=== PATIENT | male | born 1965 | race Caucasian/White ===

== ENCOUNTER 2017-04-24 08:26 | Day surgery (SDC) | payer OTHER ==
[2017-04-12 16:15] VITALS: BMI 24.4
[~2017-04-24 08:26] MED LIST: DEXAMETHASONE SOD PHOSPHATE 10 MG/ML 1 ML VIAL IV ONE; HEPARIN SODIUM,PORCINE 5,000 UNIT/ML 1 ML VIAL SQ ONE; LACTATED RINGERS 1,000 ML IV SCH; ONDANSETRON 4 MG/2 ML VIAL IVP ONE; SCOPOLAMINE 1.5MG/72HR PATCH TRANSDERM ONE; ceFAZolin IN SWFI 2 GM/20 ML SYRINGE IVP ONE; fentaNYL (PF) 50 MCG/ML 2 ML AMP IV PRN
--- NOTE | 2017-04-24 09:21 | P.GSHP ---
History of Present Illness H&P Date: 04/24/17 Chief Complaint: Left inguinal hernia This is a 1-year-old male referred from Dr. Lozoya. Patient is today for laparoscopic robotic system repair of left inguinal hernia. Past Medical History Past Medical History: Hypertension History of Any Multi-Drug Resistant Organisms: None Reported Past Surgical History: Orthopedic Surgery Additional Past Surgical History / Comment(s): "TWISTED TESTICLE REPAIRED" Past Anesthesia/Blood Transfusion Reactions: Previous Problems w/ Anesthesia Additional Past Anesthesia/Blood Transfusion Reaction / Comment(s): "WAS SHAKING SO BAD I FELT LIKE I WAS HAVING DT'S" Smoking Status: Current every day smoker - Past Family History Mother Family Medical History: Cancer, Deep Vein Thrombosis (DVT) Sister(s) Family Medical History: Cancer, Deep Vein Thrombosis (DVT) Brother(s) Family Medical History: Cancer Medications and Allergies Home Medications Medication Instructions Recorded Confirmed Type Bisoprolol-Hctz 5-6.25 mg [Ziac 1 each PO DAILY 01/23/15 04/12/17 History 5-6.25] Allergies Allergy/AdvReac Type Severity Reaction Status Date / Time latex Allergy Rash/Hives Verified 04/12/17 16:15 codeine AdvReac Nausea & Verified 04/12/17 16:07 Vomiting Surgical - Exam - General well developed, no distress - Eyes PERRL - ENT normal pinna - Neck no masses - Respiratory normal expansion - Cardiovascular Rhythm: regular - Abdomen Abdomen: soft, non tender Hernia: inguinal (Reducible left inguinal hernia) Assessment and Plan Assessment: The femoral hernia. We'll perform robotic-assisted repair
[2017-04-24] MEDS ORDERED: LACTATED RINGERS 1,000 ML IV ONE ×2 (09:45→11:52)
[2017-04-24] MEDS: LIDOCAINE 1% 20 ML VIAL (10MG/ML) FOR IV START INTRADERMA PRN ×2 (09:45→10:01)
[2017-04-24] MEDS ORDERED: ePHEDrine SULFATE/0.9% NACL/PF 50 MG/5 ML SYRINGE IV ONE (10:06)
[2017-04-24] MEDS ORDERED: ROCURONIUM BROMIDE 10 MG/ML 10 ML VIAL IV ONE (10:06)
[2017-04-24] MEDS ORDERED: fentaNYL (PF) 50 MCG/ML 2 ML AMP ONE (10:06)
[2017-04-24] MEDS ORDERED: SUCCINYLCHOLINE CHLORIDE 100 MG/5 ML SYR IV ONE (10:06)
[2017-04-24] MEDS ORDERED: MIDAZOLAM 2 MG/2 ML VIAL ONE (10:06)
[2017-04-24] MEDS ORDERED: NEOSTIGMINE 1 MG/ML 10 ML VIAL ONE (10:06)
[2017-04-24] MEDS ORDERED: PROPOFOL 10 MG/ML 20 ML VIAL IV ONE (10:06)
[2017-04-24] MEDS ORDERED: LIDOCAINE 1% INJ 10MG/ML (20 ML MDV) ONE (10:06)
[2017-04-24] MEDS ORDERED: GLYCOPYRROLATE 0.2 MG/ML 2 ML VIAL ONE (10:06)
[2017-04-24] MEDS ORDERED: BUPIVACAINE (PF) 0.25% 30 ML VIAL SQ ONE (10:26)
--- NOTE | 2017-04-24 10:59 | P.OP ---
Date of Procedure: 04/24/17 Preoperative Diagnosis: Left inguinal hernia Postoperative Diagnosis: Left inguinal hernia Procedure(s) Performed: Scopic robotic-assisted repair of left inguinal hernia Laparoscopic excision of cord lipoma Anesthesia: GERALDINE Surgeon: Jaden Kwok Estimated Blood Loss (ml): 5 Pathology: other (Cord lipoma) Condition: stable Disposition: PACU Description of Procedure: The patient's placed on the operating table in the supine position. The patient received general anesthesia. The patient's abdomen was prepped and draped in usual sterile fashion. The skin was anesthetized 1% local Xylocaine at the incision sites. Using an 11 blade a skin incision was made at the umbilicus. The fascia was grasped with a Jeanne and then the peritoneal cavity was entered with the Veress needle. Position of the Veress needle was confirmed with a positive drop test. After adequate insufflation a 5 mm trocar was placed into the peritoneal cavity. The Laparoscope was placed the peritoneal cavity. And a robotic 8 mm trocar was placed in the right lateral position and then another 8 mm robotic trochars placed in the left lateral position. The original 5 mm trocar was exchanged for a 12 mm trocar. The patient was placed in reverse Trendelenburg and then the patient was docked to the robot. Next the peritoneum over top of the hernia was incised and then using blunt and sharp dissection and electrocautery the hernia sac was dissected free from the floor of the inguinal canal. The patient had a cord lipoma. This was dissected free from the cord. The hernia sac was completely reduced into the peritoneal cavity. And then using the Pro die welder mesh the hernia was repaired. The peritoneum was then sutured with 20V lock suture. The patient was then undocked the robot. The needle was withdrawn from the peritoneal cavity. Cord lipoma was withdrawn and sent to pathology. The umbilical trocar site was closed with 0 Ethibond suture. The skin was closed interrupted 3-0 Monocryl suture. Dermabond dressing was applied. Patient was sent to recovery in stable condition.
[2017-04-24 11:09] VITALS: TEMP 97.8
[2017-04-24] MEDS: HYDROmorphone 2 MG/ML 1 ML SYRINGE IVP ONE ×3 (11:16→11:34)
[2017-04-24 11:19] VITALS: RESP 16
[2017-04-24] MEDS ORDERED: KETOROLAC 30 MG/ML 1 ML VIAL IVP ONE (11:50)
[2017-04-24] MEDS ORDERED: HYDROmorphone 2 MG/ML 1 ML SYRINGE IVP ONE (11:57)
[2017-04-24 12:31] VITALS: PULSE 45
[2017-04-24] MEDS ORDERED: HYDROcodone/APAP 7.5-325MG 1 EACH TAB PO ONE (12:31)
[2017-04-24 12:48] VITALS: BP 138/85
== END 2017-04-24 13:04 | disposition home or self-care (01) ==
LOC: OR 08:26
PROVIDERS: ATTEND Surgery
DX: K40.90 Unilateral inguinal hernia, without obstruction or gangrene, not specified as recurrent (principal); D17.6 Benign lipomatous neoplasm of spermatic cord; I10 Essential (primary) hypertension; F17.210 Nicotine dependence, cigarettes, uncomplicated; Z79.899 Other long term (current) drug therapy; Z88.5 Allergy status to narcotic agent; Z91.040 Latex allergy status
CPT/HCPCS: 49650; S2900; 88304

== ENCOUNTER → 2019-11-10 | Outpatient (CLI) | payer BC ==
--- NOTE | 2019-11-11 00:06 | MR ---
EXAMINATION TYPE: MR foot RT wo con DATE OF EXAM: 11/10/2019 COMPARISON: None HISTORY: Pain and swelling Multiplanar multiecho imaging of the right foot was performed without contrast. FINDINGS: The metatarsals are intact. Joint spaces are fairly normal in the foot. The Achilles tendon is intact . Plantar fascia appears intact. The medial and lateral flexor tendons of the foot appear intact. Sub talar joint appears normal. I see no bony destructive process. The collateral ligaments of the ankle appear intact. There is very minimal subcutaneous edema of the forefoot around the MP joints. I see no bony destruct sherita process. There is no evidence of soft tissue mass. There is a small effusion of the first MP join t. IMPRESSION: Mild soft tissue swelling of the forefoot at the MP joints. Small joint effusion of the first MP join t. No fracture. Normal joint spaces. No evidence of ligament or tendon tear.
== END | disposition home or self-care (01) ==
LOC: RADMRIMAIN 15:16
PROVIDERS: ATTEND Orthopaedic Surgery
DX: M25.474 Effusion, right foot (principal); M79.89 Other specified soft tissue disorders

== ENCOUNTER → 2021-05-11 | Outpatient (CLI) | payer OTHER ==
--- NOTE | 2021-05-12 13:09 | ECHOS ---
STRESS ECHOCARDIOGRAM INDICATIONS: Chest pain. BASELINE HEART RATE: 45 BASELINE BLOOD PRESSURE: 139/74 MAXIMUM HEART RATE: 121 MAXIMUM BLOOD PRESSURE: 229/58 85% MPHR: 139 100% MPHR: 163 METS: 9.3 MAXIMUM STAGE REACHED: III TOTAL EXERCISE TIME: 9:35 CLINICAL INFORMATION: STRESS DATA: Heart rate 45, pressure 139/74 mmHg. Baseline EKG showed sinus mechanism. The patient exercised on the treadmill according to Dimitri protocol for a total of 9 minutes and achieved 9.3 METS. Max heart rate was 121, which is about 74% of maximum predicted heart rate, and maximum blood pressure was 229/58 mmHg. Clinically the patient developed chest discomfort. The EKG did not show any significant ST or T-wave abnormalities concerning for ischemia. Echocardiogram images from parasternal long axis view, parasternal short axis view, apical 4-chamber and apical 2-chamber views were obtained as the baseline images at the peak of the heart rate as well as on recovery, and the echocardiogram images did not show any evidence of significant wall motion abnormalities concerning for ischemia. CONCLUSION: 1. Chest discomfort in response to exercise. 2. Normal EKG in response to exercise to the level of the heart rate achieved, which is only 74%. 3. Normal echocardiogram in response to exercise to the level of the heart rate which was achieved. 4. Overall this is a nondiagnostic stress test because the patient only achieved 74% of maximum predicted heart rate. MMJACQUIEL / KOKON: [id number] /
== END | disposition home or self-care (01) ==
LOC: RADNMMAIN 09:17
PROVIDERS: ATTEND Family Medicine
DX: R07.89 Other chest pain (principal)
CPT/HCPCS: 93351

== ENCOUNTER 2021-07-11 06:05 | Day surgery (SDC) | payer OTHER ==
[2021-07-07 15:51] VITALS: BMI 22.8
[~2021-07-11 06:05] MED LIST changes: +ALPRAZolam 0.25 MG TAB PO PRN; +ALPRAZolam 0.5 MG TAB PO PRN; +ASPIRIN 325 MG TAB PO STA; +ATORVASTATIN 80 MG TAB PO STA; -DEXAMETHASONE SOD PHOSPHATE 10 MG/ML 1 ML VIAL IV ONE; +HEPARIN SODIUM,PORCINE 10,000 UNIT in SODIUM CHLORIDE 0.9% 1,000 ML IRRIGATION PRN; +HEPARIN SODIUM,PORCINE 2,500 UNIT in SODIUM CHLORIDE 0.9% 250 ML IRRIGATION PRN; -HEPARIN SODIUM,PORCINE 5,000 UNIT/ML 1 ML VIAL SQ ONE; -LACTATED RINGERS 1,000 ML IV SCH; +NITROGLYCERIN SL TABS 0.4 MG TAB SUBLINGUAL PRN; -ONDANSETRON 4 MG/2 ML VIAL IVP ONE; -SCOPOLAMINE 1.5MG/72HR PATCH TRANSDERM ONE; +SODIUM CHLORIDE 0.9% 1,000 ML in EMPTY BAG 1 BAG IV SCH; -ceFAZolin IN SWFI 2 GM/20 ML SYRINGE IVP ONE; -fentaNYL (PF) 50 MCG/ML 2 ML AMP IV PRN
[2021-07-11 06:51] VITALS: RESP 18; TEMP 98.1
[2021-07-11] MEDS ORDERED: LIDOCAINE 1% INJ 10MG/ML (20 ML MDV) ONE (07:18)
[2021-07-11] MEDS ORDERED: VERAPAMIL 2.5 MG/ML 2 ML AMP ONE (07:18)
[2021-07-11] MEDS ORDERED: fentaNYL (PF) 50 MCG/ML 2 ML AMP ONE (07:27)
[2021-07-11] MEDS ORDERED: fentaNYL (PF) 50 MCG/ML 2 ML AMP IV ONE (07:36)
[2021-07-11] MEDS ORDERED: HEPARIN SODIUM 1,000 UN/ML (10ML VL) ONE (07:37)
[2021-07-11] MEDS ORDERED: MIDAZOLAM 2 MG/2 ML VIAL IV ONE (07:38)
[2021-07-11] MEDS: LIDOCAINE 1% INJ 10MG/ML (20 ML MDV) SQ ONE ×2 (07:39→07:55)
[2021-07-11] MEDS ORDERED: IOPAMIDOL-370 125ML BTL INJ ONE (08:05)
--- NOTE | 2021-07-11 08:31 | CC ---
CARDIAC CATHETERIZATION REPORT INDICATION: Recurrent episodes of chest pain with an abnormal stress test. PROCEDURE NOTE: After obtaining informed consent, left heart catheterization and coronary angiogram were performed via the right femoral artery using standard Hermes catheters. Patient tolerated the procedure well without any obvious immediate complications. A femoral angiogram was performed and Angio-Seal was deployed for hemostasis. Patient received moderate conscious sedation. Total sedation time was 26 minutes. I initially attempted vascular access to the right radial artery, but I was unsuccessful; hence I proceeded with a femoral cath. FINDINGS: HEMODYNAMICS: Left ventricular end-diastolic pressure is 8 to 10 mm. There is no significant gradient across the aortic valve. LEFT VENTRICULOGRAM: Left ventriculogram was not performed. ANGIOGRAPHIC DATA Left main coronary artery. Left main coronary artery is a normal-sized vessel and is free of stenosis. It divides into left anterior descending coronary artery and circumflex coronary artery and a ramus intermedius. LAD, circumference and the ramus are free of significant disease. Right coronary artery is a large codominant system and is free of significant disease. CONCLUSIONS: 1. Normal coronary arteries. 2. Normal left ventricular end-diastolic pressure. 3. False-positive stress test. 4. Patient's chest pain is noncardiac in origin. PLAN: Will work on risk factor modifications. MMODL / IJN: [id number] /
[2021-07-11] MEDS ORDERED: RX INFO: IV CONTRAST WAS GIVEN 1 EACH MISC MISCELLANE PRN (09:33)
[2021-07-11] MEDS ORDERED: ACETAMINOPHEN TAB 325 MG TAB PO PRN (09:35)
[2021-07-11] MEDS ORDERED: ACETAMINOPHEN TAB 325 MG TAB ONE (09:35)
[2021-07-11] MEDS ORDERED: SODIUM CHLORIDE 0.9% 1,000 ML IV SCH (09:45)
[2021-07-11 13:08] VITALS: PULSE 40
[2021-07-11 13:09] VITALS: BP 147/80
== END 2021-07-11 13:06 | disposition home or self-care (01) ==
LOC: CATHCVL 06:05
PROVIDERS: ATTEND Internal Medicine Cardiovascular Disease
DX: R07.2 Precordial pain (principal); I10 Essential (primary) hypertension; F17.210 Nicotine dependence, cigarettes, uncomplicated; Z79.82 Long term (current) use of aspirin; Z79.899 Other long term (current) drug therapy
CPT/HCPCS: 93458; C1760; C1894 ×2; C1769; J2250; J2001; J3010; Q9967

== ENCOUNTER → 2023-02-08 | Outpatient (CLI) | payer OTHER ==
--- NOTE | 2023-02-08 20:16 | CTL ---
EXAMINATION TYPE: CT Low Dose Lung DATE OF EXAM ORDERED: 02/08/2023 HISTORY: Nicotine Dependance. Lung cancer screening CT DLP: 76.[address] CTDI: 1.9 mGy Automated exposure control for dose reduction was used. SCREENING VISIT: Initial COMPARISON: None TECHNIQUE: Low dose computed tomography scan was performed through the chest at 1 mm thick sections a nd reconstructed images in the coronal plane at [address] DIAGNOSTIC QUALITY: Satisfactory FINDINGS: LUNG NODULES: None. LUNGS: COPD: Severity: None Fibrosis: Severity: None Lymph nodes: None Other findings: None RIGHT PLEURAL SPACE: Effusion: None Calcification: None Thickening: None Pneumothorax: None LEFT PLEURAL SPACE: Effusion: None Calcification: None Thickening: None Pneumothorax: None HEART: Heart Size: Normal Coronary calcification: None Pericardial effusion: None OTHER FINDINGS: Upper abdomen: Normal Bony thorax: Normal Supraclavicular region: Normal Other: Ascending thoracic aorta at the level the main pulmonary artery measures 3.9 cm. The main pul monary artery at the bifurcation measures2.8 cm. IMPRESSION: No FOLLOW UP CT CHEST RECOMMENDATION: Follow-up low-dose CT chest one year CT LUNG RAD: Lung-Rad 1 Negative
== END | disposition home or self-care (01) ==
LOC: RADCTMAIN 09:05
PROVIDERS: ATTEND Family Medicine
DX: Z12.2 Encounter for screening for malignant neoplasm of respiratory organs (principal); F17.210 Nicotine dependence, cigarettes, uncomplicated
CPT/HCPCS: 71271

== ENCOUNTER → 2023-12-13 | Outpatient (CLI) | payer OTHER ==
--- NOTE | 2023-12-31 20:07 | MR ---
Examination Type: MR ANKLE RT WO CON Date of Exam: 12/13/2023 Clinical History: Right ankle pain, swelling, clicking. Limited movement since November 04 due to fallin g into a hole. Additional: Ligament sprain Technique: Departmental protocol with multiplanar multiparameter high-resolution MRI sequences. Comparison: MRI Right Foot 11/10/2019. FINDINGS: GENERAL FINDINGS Bones: The posterolateral talar dome shows 15.5 mm zone of subchondral T2 hyperintense marrow edema ( coronal images 22-28) with the overlying articular cartilage showing T2 hyperintensity and mild volum e loss. There is no findings to suggest osteochondral instability. Alignment: Normal. Articulations: Scattered mild osteoarthritis changes are noted throughout the visualized articulatio ns. Muscles: Normal. Tarsal tunnel: Normal. Sinus tarsi: There is mild-moderate edematous change. MEDIAL COMPARTMENT Medial malleolus: Normal. Posterior tibial tendon: Normal. Flexor digitorum longus tendon: Normal. Deltoid ligament complex (superficial): Normal. Deltoid ligament complex (deep): Normal. Spring ligament: Normal. LATERAL COMPARTMENT Lateral malleolus: Marrow shows mild T2 hyperintensity, likely bone contusion. Retromalleolar groove: Flat Peroneus longus tendon: Mildly thickened but normal in morphology and signal characteristics, likely remote injury. Peroneus brevis tendon: There is linear T2 hyperintense signal within the distal 2 cm of the tendon (axial T2 FS images 11-18 and coronal T2 FS images 17-25), consistent with a clinical diagnosis of lo ngitudinal tear Peroneal retinaculum: Normal. Peroneus quartus: Absent. Anterior inferior tibiofibular ligament: Normal. Posterior inferior tibiofibular ligament: Normal. Anterior talofibular ligament: Normal. Calcaneofibular ligament: Normal. Posterior talofibular ligament: Normal. POSTERIOR COMPARTMENT Posterior talus: Normal. Flexor hallucis longus: Has moderately excessive fluid within its tendon sheath, particularly in the midfoot where multiple septae are also present, but ankle joint effusion is present. Intermalleolar ligament: Normal. Achilles tendon: Normal. Plantar fascia: Normal. ANTERIOR COMPARTMENT Anterior tibial tendon: Normal. Extensor hallucis longus: Normal. Extensor digitorum longus: Normal. Peroneus tertius: Absent. IMPRESSION: Posterolateral talar dome osteochondral injury and mild fibular bone contusion. Peroneal brevis split tear. Evidence suggesting remote peroneal longus injury. Prominent FHL tendon sheath fluid but ankle joint effusion present. [facility], , 12/31/2023 8:04 PM
== END | disposition home or self-care (01) ==
LOC: RADMRIMAIN 09:50
PROVIDERS: ATTEND Podiatrist
DX: S93.401D Sprain of unspecified ligament of right ankle, subsequent encounter

== ENCOUNTER → 2024-04-17 | Outpatient (CLI) | payer SELFPAY ==
--- NOTE | 2024-04-18 13:18 | MR ---
EXAMINATION TYPE: MR foot RT wo con DATE OF EXAM: 04/17/2024 8:27 AM COMPARISON: 11/10/2019. CLINICAL INDICATION: Male, 58 years old with history of [id number] injury plantar artery; PHH, Rt ankle pain into bottom of forefoot TECHNIQUE: Multiplanar, multisequence MR imaging of the right forefoot. MR contrast: IV Contrast: mL none FINDINGS: High inversion recovery signal/soft tissue edema series 1 image 7 plantar surface soft tissues near t he digits 2 through 4. Musculature demonstrates age-appropriate signal and volume. There is no organi zed soft tissue fluid collection. There is no evidence of bone marrow edema or fracture. There is a STIR signal within the talus as see n on prior in 11/10/2019 of unknown significance possibly related subchondral cystic change from inser tion of the ligaments. There is no periosteal reaction. Medial and lateral hallux sesamoids have a no rmal appearance. Plantar fascia demonstrates heterogenous appearance involving the flexor digitorum brevis muscle most pronounced series 601 image 35 with an edematous appearance of the myotendinous junction. High T2 signal to detect to signal fluid around the flexor hallucis longus tendon as it crosses into the ankle. There is no evidence of a joint effusion. There is no evidence of intermetatarsal bursitis . No Mortons neuroma is present. Flexor tendons are intact. Extensor tendons are intact. Lisfranc ligament proper is intact. Capsular ligaments are intact. IMPRESSION: 1. Soft tissue edema along the Redemonstration of mild soft tissue edema involving the forefoot most pronounced near the second through fourth digits. No evidence for organizing fluid collection or bon y edema. 2. Tenosynovitis of the flexor hallucis longus tendon. 3. Plantar fasciitis of the myotendinous junction of the flexor digitorum brevis muscle edema. [facility], , 04/18/2024 1:15 PM
== END | disposition home or self-care (01) ==
LOC: RADMRIMAIN 07:14
PROVIDERS: ATTEND Podiatrist
DX: S95.1 Injury of plantar artery of foot (principal); M65.971 Unspecified synovitis and tenosynovitis, right ankle and foot; M72.2 Plantar fascial fibromatosis; R60.0 Localized edema